=== PATIENT | female | born 1975 ===

== ENCOUNTER 2017-12-30 21:56 | Emergency (ER) | payer OTHER ==
[2017-12-30 22:27] VITALS: BP 113/70; PULSE 80; RESP 16; TEMP 98.2; O2SAT 100
[2017-12-30 23:16] LABS: HEMOGLOBIN 13.6 g/dL (12.0-16.0); MEAN CELL VOLUME 89.1 fl (81.0-99.0); MEAN CORPUSCULAR HEMOGLOBIN 29.2 pg (27.0-31.0); MEAN CORPUSCULAR HGB CONC 32.7 g/dL (33.0-37.0); RBC 4.66 Mil/uL (3.80-5.20); RED CELL DISTRIBUTION WIDTH 14.8 % (11.5-14.5); WHITE BLOOD COUNT 12.7 K/uL (4.8-10.8)
--- NOTE | 2017-12-30 23:17 | ED PDOC ---
HPI: Abdomen Time Seen by Provider: 12/30/17 22:29 Chief Complaint (Nursing): Abdominal Pain Chief Complaint (Provider): Abdominal Pain History Per: Patient History/Exam Limitations: no limitations Onset/Duration Of Symptoms: Other (present for months) Outside of [place] travel?: No Current Symptoms Are (Timing): Better Context: Food Location Of Pain/Discomfort: Epigastric Exacerbating Factors: Food Additional Complaint(s): 42 year old female presents to ED with complaints of epigastric pain present for months and has no past medical history. Patient notes pain is worse after eating and is associated with intermittent excess belching and flatulence. (-) excess EtOH intake, abdominal surgeries, fever, urinary symptom, nausea, vomiting, diarrhea, or constipation. States pain presented tonight after eating and started to resolve [employer]. PCP: MARIE Past Medical History Reviewed: Historical Data, Nursing Documentation, Vital Signs Vital Signs: Last Vital Signs Temp 98.2 F 12/30/17 22:27 Pulse 80 12/30/17 22:27 Resp 16 12/30/17 22:27 BP 113/70 12/30/17 22:27 Pulse Ox 100 12/30/17 23:49 - Medical History PMH: No Chronic Diseases - Surgical History Surgical History: No Surg Hx - Family History Family History: States: Unknown Family Hx - Living Arrangements Living Arrangements: With Family - Social History Drugs: Denies - Home Medications Home Medications: Ambulatory Orders Medication Instructions Recorded Famotidine [Pepcid] 20 mg PO BID #20 tab 12/30/17 - Allergies Allergies/Adverse Reactions: Allergies Allergy/AdvReac Type Severity Reaction Status Date / Time Penicillins Allergy Mild RASH Verified 12/30/17 22:29 Review of Systems ROS Statement: Except As Marked, All Systems Reviewed And Found Negative Constitutional: Negative for: Fever Gastrointestinal: Positive for: Abdominal Pain (epigastric), Other ((+) excess belching and flatulence). Negative for: Nausea, Vomiting, Diarrhea, Constipation Genitourinary Female: Negative for: Dysuria, Frequency, Incontinence, Hematuria Physical Exam - Reviewed Nursing Documentation Reviewed: Yes Vital Signs Reviewed: Yes - Physical Exam Appears: Positive for: Non-toxic, No Acute Distress Skin: Positive for: Normal Color, Warm, Dry Eye Exam: Positive for: Normal appearance ENT: Positive for: Normal ENT Inspection Neck: Positive for: Normal, Painless ROM, Supple Cardiovascular/Chest: Positive for: Regular Rate, Rhythm. Negative for: Murmur Respiratory: Positive for: Normal Breath Sounds. Negative for: Respiratory Distress Gastrointestinal/Abdominal: Positive for: Soft. Negative for: Tenderness Extremity: Positive for: Normal ROM. Negative for: Deformity Neurologic/Psych: Positive for: Alert, Oriented. Negative for: Motor/Sensory Deficits - Laboratory Results Result Diagrams: 12/30/17 23:07 12/30/17 23:07 - ECG O2 Sat by Pulse Oximetry: 100 (RA) Pulse Ox Interpretation: Normal Medical Decision Making Medical Decision Makin Initial impression: gastritis, acid reflux Initial plan: * Labs * Lipase * LFT 2348 Labs reviewed: no clinically significant abnormalities. Patient is stable for discharge home with prescription for Pepcid. Dx: epigastric pain Scribe Attestation: Documented by Carolyn Rojas acting as a scribe for Warren Brito MD. Scribe Attestation: All medical record entries made by the Scribe were at my direction and personally dictated by me. I have reviewed the chart and agree that the record accurately reflects my personal performance of the history, physical exam, medical decision making, and the department course for this patient. I have also personally directed, reviewed, and agree with the discharge instructions and disposition. Disposition - Clinical Impression Clinical Impression: Epigastric pain - Disposition Referrals: Jonathan Up MD [Family Provider] - Disposition: Routine/Home Disposition Time: 23:49 Condition: STABLE Prescriptions: Famotidine [Pepcid] 20 mg PO BID #20 tab Instructions: Acid Reflux (Gastroesophageal Reflux Disease), Adult (DC), Gas and Bloating, Stomach Ache and Stomach Upset Forms: [employer] ([place]) Print Language: SAMOAN
[2017-12-30 23:28] LABS: ALB/GLOB RATIO 1.7 (1.0-2.1); ALBUMIN 4.2 g/dL (3.5-5.0); ALT/SGPT 21 U/L (9-52); AST/SGOT 15 U/L (14-36); BILIRUBIN,DIRECT 0.4 mg/ml (0.0-0.4); BLOOD UREA NITROGEN 13 mg/dl (7-17); CALCIUM 9.3 mg/dL (8.4-10.2); GFR AFRICAN-AMERICAN > 60; GFR NON-AFRICAN AMERICAN > 60; LIPASE 25 U/L (23-300)
== END 2017-12-31 00:08 | disposition home or self-care (01) ==
LOC: H.ER 21:56
DX: R10.13 Epigastric pain (principal); Z88.0 Allergy status to penicillin